=== PATIENT | female | born 1955 | race Two or more races ===

== ENCOUNTER 2020-03-25 22:52 | Emergency (ER) | payer MEDICAID, OTHER ==
[~2020-03-25] VITALS: Ht 149.9 cm; Wt 60.0 kg
[2020-03-25 23:29] LABS: BASOPHILS # (AUTO) 0.09 x10^3/uL (0-0.1); BASOPHILS % (AUTO) 1 % (0-1); EOSINOPHILS # (AUTO) 0.15 x10^3/uL (0-0.4); EOSINOPHILS % (AUTO) 2 % (1-7); LYMPHOCYTES # (AUTO) 2.54 x10^3/uL (1-3.4); LYMPHOCYTES % (AUTO) 29 % (22-44); MD NO; MEAN CORPUSCULAR HEMOGLOBIN 27.1 pg (27.0-34.8); MEAN CORPUSCULAR HGB CONC 32.5 g/dL (32.4-35.8); MEAN PLATELET VOLUME 8.7 fL (7.4-10.4); MONOCYTES % (AUTO) 7 % (2-9); NEUTROPHILS # (AUTO) 5.35 x10^3/uL (1.8-6.8); NEUTROPHILS % (AUTO) 61 % (42-75); PLATELET COUNT 294 x10^3/uL (130-400); RED CELL DISTRIBUTION WIDTH 16.3 % (9.6-15.2)
[2020-03-25 23:37] LABS: ALBUMIN 3.3 g/dL (3.4-5.0); ANION GAP 5 mmol/L (5-15); CALCIUM 8.7 mg/dL (8.5-10.1); CHLORIDE 112 mmol/L (98-107); CREATININE 0.81 mg/dL (0.55-1.02)
[2020-03-25 23:41] LABS: TROPONIN I < 0.015 ng/mL (0.000-0.045)
[2020-03-25] MEDS ORDERED: PLEASE ENTER ALLERGIES MC SCH (23:45)
[2020-03-25] MEDS ORDERED: DEXAMETHASONE 4 MG TABLET ONE (23:49)
[2020-03-25 23:52] VITALS: BP 119/65
--- NOTE | 2020-03-25 23:55 | NUR ---
Patient BIB ambulance c/o dry cough and SOB x1 week which both increase with exertion and while laying down. Patient states she feels like she's had intermittent fevers. Afebrile here. Patient is coughing but otherwise in NAD. Respirations even and unlabored.
[2020-03-26] MEDS ORDERED: DEXAMETHASONE 4 MG TABLET PO ONE
== END 2020-03-26 01:47 | disposition home or self-care (01) ==
LOC: ED 03-26 00:28
DX: R06.00 Dyspnea, unspecified (principal); Z20.828 Contact with and (suspected) exposure to other viral communicable diseases; I44.7 Left bundle-branch block, unspecified; R00.0 Tachycardia, unspecified
CPT/HCPCS: 36415; 71045; 80048; 82040; 84484; 85025; 87635; 93005; 99285